=== PATIENT | female | born 1960 | race Two or more races ===

== ENCOUNTER 2023-06-12 12:47 | Outpatient (CLI) | payer OTHER | END 2023-06-12 12:58 | disposition home or self-care (01) | LOC: TOM 12:47 | PROVIDERS: ATTEND Specialist | DX: K52.9 Noninfective gastroenteritis and colitis, unspecified (principal) ==

== ENCOUNTER 2025-04-06 10:47 | Outpatient (CLI) | payer OTHER | END 2025-04-06 10:49 | disposition home or self-care (01) | LOC: TOM 10:47 | PROVIDERS: ATTEND Internal Medicine Gastroenterology | DX: K56.600 Partial intestinal obstruction, unspecified as to cause (principal); R10.9 Unspecified abdominal pain ==